=== PATIENT | female | born 1990 | race Caucasian/White ===

== ENCOUNTER → 2021-01-10 10:14 | Outpatient (CLI) | payer BC, SELFPAY ==
--- NOTE | ~2021-01-10 | US_ITS ---
US abdomen limited INDICATION: Abnormal liver enzymes. PROCEDURE: Realtime right upper abdominal ultrasound. COMPARISON: No prior studies for comparison. FINDINGS: The pancreas is normal without focal mass or pancreatic ductal dilation. Liver echotexture is normal without focal mass or intrahepatic biliary dilatation. There is normal directional flow i n the portal vein. The gallbladder is normal without stones, gallbladder wall thickening or pericholecystic fluid. Comm on bile duct measures 3 mm. No sonographic Ramírez's sign. IMPRESSION: 1: Normal limited abdominal ultrasound. Reviewed, dictated and finalized at location B.
== END ==
PROVIDERS: PCP Family Medicine; Visit Provider Nurse Practitioner Family
DX: R74.8 Abnormal levels of other serum enzymes (principal)
CPT/HCPCS: 76705

== ENCOUNTER 2022-11-04 15:12 | Outpatient (CLI) | payer BC, SELFPAY ==
--- NOTE | ~2022-11-04 | US_ITS ---
Pelvic ultrasound. Clinical History: Noninflammatory disorder of ovary or fallopian tube Technique: Realtime transabdominal and transvaginal scanning of the pelvis was performed. Color flow Doppler and Doppler spectral analysis were performed. Findings: The uterus is anteverted, and measures 11.6 x 4.8 x 7.0 cm. The endometrial stripe has a t hickness of 6 mm. No focal mass is identified. The right ovary measures 7.7 x 5.7 x 6.8 cm, and is nearly completely occupied by a large simple cyst . The left ovary measures 3.9 x 2.2 x 2.2 cm. No significant left ovarian or adnexal mass is seen. Vascular flow present in both ovaries on Doppler spectral analysis. There is no evidence of free fluid in the cul de sac. Impression: 7.5 cm simple right ovarian cyst. Reviewed, dictated and finalized at [facility]. [employer] Impression: 7.5 cm simple right ovarian cyst.
== END 2022-11-04 15:13 | disposition home or self-care (01) ==
LOC: ANHIMG 15:15
PROVIDERS: PCP Family Medicine; Visit Provider Obstetrics & Gynecology
DX: N83.8 Other noninflammatory disorders of ovary, fallopian tube and broad ligament (principal); N83.201 Unspecified ovarian cyst, right side
CPT/HCPCS: 76830; 76856

== ENCOUNTER 2022-12-18 15:16 | Outpatient (CLI) | payer BC, SELFPAY ==
--- NOTE | ~2022-12-18 | US_ITS ---
Pelvic ultrasound. Clinical History: Ovarian cyst COMPARISON: 11/04/2022 Technique: Realtime transabdominal and transvaginal scanning of the pelvis was performed. Color flow Doppler and Doppler spectral analysis were performed. Findings: The uterus is anteverted. The endometrial stripe has a thickness of 8 mm. No focal myometr ial mass is identified. Small cervical nabothian cysts are present. The right ovary measures 2.2 x 3.3 x 2.7 cm. No significant right ovarian or adnexal mass is seen. The left ovary measures 4.0 x 3.8 x 2.5 cm. No significant left ovarian or adnexal mass is seen. There is no evidence of free fluid in the cul de sac. Impression: Unremarkable pelvic ultrasound. Small follicular ovarian cysts are of no clinical significance. Reviewed, dictated and finalized at [facility]. Impression: Unremarkable pelvic ultrasound. Small follicular ovarian cysts are of no clinic al significance.
== END 2022-12-18 15:17 | disposition home or self-care (01) ==
PROVIDERS: PCP Family Medicine; Visit Provider Registered Nurse
DX: N83.201 Unspecified ovarian cyst, right side (principal); N83.202 Unspecified ovarian cyst, left side
CPT/HCPCS: 76830; 76856

== ENCOUNTER 2023-07-05 10:21 | Outpatient (CLI) | payer BC, SELFPAY ==
[2023-07-05 10:39] LABS: Basophils Percent Auto 0.7 % (0.2-1.2); Eosinophils Absolute Auto 0.1 K/mm3 (0-0.3); Eosinophils Percent Auto 2.4 % (0-4.4); Hemoglobin 12.9 g/dL (12.0-15.0); Immature Granulocyte Absolute 0.01 K/mm3 (0.00-0.031); Immature Granulocyte Percent A 0.2 % (0-0.5); Lymphocytes Absolute Auto 1.84 K/mm3 (0.9-3.2); Lymphocytes Percent Auto 40.4 % (18.3-44.2); Mean Corpuscular HGB Conc 33.1 g/dl (32-36); Mean Corpuscular Hemoglobin 33.5 pg (26-34); Mean Corpuscular Volume 101.3 fl (80-100); Mean Platelet Volume 10.5 fl (7.4-10.4); Monocytes Absolute Auto 0.2 K/mm3 (0.1-0.6); Monocytes Percent Auto 5.3 % (2.6-8.5); Neutrophils Absolute Auto 2.3 K/mm3 (1.3-6.7); Platelet Count Result 173 k/mm3 (150-375); Red Blood Count 3.85 M/mm3 (4.2-5.4); Red Cell Distribution Width 12.2 % (11.5-14.5); White Blood Count 4.6 K/mm3 (4.5-10.0)
[2023-07-05 12:45] LABS: Free T4 Free Thyroxine 0.68 ng/mL (0.78-2.19)
== END 2023-07-05 10:22 | disposition home or self-care (01) ==
LOC: ANHLAB 10:23
PROVIDERS: PCP Family Medicine; Visit Provider Internal Medicine Hematology & Oncology
DX: E03.9 Hypothyroidism, unspecified (principal)
CPT/HCPCS: 36415; 84439; 84443; 85025

== ENCOUNTER 2023-08-24 10:28 | Outpatient (CLI) | payer BC, SELFPAY ==
[2023-08-24 12:00] LABS: Appearance Urine Cloudy (Clear); Bacteria Urine Rare /hpf; Bilirubin Urine Negative (Negative); Blood Urine 2+ (Negative); Color Urine Yellow (Yellow); Glucose Urine UA Negative (Negative); Ketones Urine Negative (Negative); Leukocyte Esterase Ur Negative LEU/UL (NEGATIVE); Nitrate Urine Negative (Negative); Non Pathogenic Casts 0-2; Protein Urine Negative (Negative); RBC Urine 0-2 /hpf (0-2); Squamous Epithelial Cell Urine Few /hpf (Few); Urobilinogen Urine 0.2 mg/dL (<2.0); WBC Urine 0-5 /hpf (0-3)
[2023-08-24 12:05] LABS: Add Urine Microscopic? YES
== END 2023-08-24 10:29 | disposition home or self-care (01) ==
PROVIDERS: PCP Family Medicine; Visit Provider Internal Medicine Hematology & Oncology
DX: R30.0 Dysuria (principal)
CPT/HCPCS: 81001; 87086; 87088

== ENCOUNTER 2023-09-22 10:34 | Outpatient (CLI) | payer BC, SELFPAY ==
[2023-09-22 12:56] LABS: T4 Thyroxine 7.47 ug/dL (5.53-11.0)
== END 2023-09-22 10:35 | disposition home or self-care (01) ==
LOC: ANHLAB 10:36
PROVIDERS: Nurse Practitioner Family; PCP Family Medicine; Visit Provider Internal Medicine Hematology & Oncology
DX: E03.9 Hypothyroidism, unspecified (principal)
CPT/HCPCS: 36415; 84436; 84443

== ENCOUNTER 2023-11-12 11:58 | Outpatient (CLI) | payer BC, SELFPAY ==
--- NOTE | ~2023-11-12 | US_ITS ---
EXAMINATION: US OB <=14 wk fetus w TV DATE: 11/12/2023 12:38 INDICATION: Right lower quadrant abdominal pain. . TECHNIQUE: Real-time transabdominal and transvaginal pelvic ultrasound was performed. COMPARISON: None. FINDINGS: TRANSABDOMINAL ULTRASOUND: The uterus measures 10.4 x 5.5 x 7.2 cm. TRANSVAGINAL ULTRASOUND: The endometrial complex measures 2.8 cm in thickness. There is no visible in trauterine gestational sac. The right ovary measures 2.6 x 1.6 x 2.2 cm. The left ovary measures 3.7 x 2.8 x 3.9 cm. There is no free fluid in the pelvis. IMPRESSION: 1. No visible intrauterine gestational sac, which may be seen with early . Spontaneous abor tion, ectopic , and gestational trophoblastic disease cannot be excluded. Serial beta hCGs a re recommended. Reviewed, dictated and finalized at location A. ALARM DISPATCHER IMPRESSION: 1. No visible intrauterine gestational sac, which may be seen with early pregn jori. Spontaneous , ectopic , and gestational trophoblastic di sease cannot be excluded. Serial beta hCGs are recommended.
== END 2023-11-12 11:59 | disposition home or self-care (01) ==
LOC: ANHIMG 11:58
PROVIDERS: PCP Family Medicine; Visit Provider Nurse Practitioner Family
DX: O36.80X0 Pregnancy with inconclusive fetal viability, not applicable or unspecified (principal); Z3A.00 Weeks of gestation of pregnancy not specified
CPT/HCPCS: 36415; 76801; 76817; 84702

== ENCOUNTER 2023-11-15 08:53 | Outpatient (CLI) | payer BC, SELFPAY | END 2023-11-15 08:54 | disposition home or self-care (01) | PROVIDERS: PCP Family Medicine; Visit Provider Nurse Practitioner Family | DX: O36.80X0 Pregnancy with inconclusive fetal viability, not applicable or unspecified (principal); Z3A.00 Weeks of gestation of pregnancy not specified | CPT/HCPCS: 36415; 84702 ==

== ENCOUNTER 2023-11-15 11:22 | Outpatient (CLI) | payer BC, SELFPAY ==
--- NOTE | ~2023-11-15 | US_ITS ---
EXAMINATION: US OB <=14 wk fetus w TV DATE: 11/15/2023 12:26 INDICATION: Inconclusive viability during first trimester TECHNIQUE: Real-time pelvic transabdominal and transvaginal ultrasound was performed. COMPARISON: 11/12/2023 FINDINGS: The uterus measures 9.8 x 6.8 x 7.6 cm. There is an intrauterine gestational sac. A yolk sa c is identified. The pole is not yet visualized. The mean sac diameter measures 10 mm, which co rrelates with an estimated gestational age of 5 weeks and 5 day(s) (+/-) 4 day(s). The right ovary measures 1.4 x 1.2 x 1.3 cm. The left ovary measures 4.0 x 3.1 x 3.0 cm and contains a 2 cm cyst. There is normal vascular flow in the ovaries. There is no free fluid in the pelvis. IMPRESSION: 1. Intrauterine gestational sac with an estimated gestational age of 5 weeks and 5 day(s) (+/-) 4 day (s) and an estimated delivery date of 07/12/2024 based on mean sac diameter. pole not yet visua lized, likely due to early gestation.. Reviewed, dictated and finalized at location B. ER PIE FILLING IMPRESSION: 1. Intrauterine gestational sac with an estimated gestational age of 5 weeks an d 5 day(s) (+/-) 4 day(s) and an estimated delivery date of 07/12/2024 based on mean sac diameter. pole not yet visualized, likely due to early gestatio n..
== END 2023-11-15 11:23 | disposition home or self-care (01) ==
LOC: ANHIMG 11:22
PROVIDERS: PCP Family Medicine; Visit Provider Obstetrics & Gynecology
DX: O36.80X0 Pregnancy with inconclusive fetal viability, not applicable or unspecified (principal); Z3A.01 Less than 8 weeks gestation of pregnancy
CPT/HCPCS: 36415; 76801; 76817; 84702

== ENCOUNTER 2023-11-23 12:09 | Outpatient (CLI) | payer BC, SELFPAY ==
--- NOTE | ~2023-11-23 | US_ITS ---
EXAMINATION: US OB <=14 wk fetus w TV DATE: 11/23/2023 12:40 INDICATION: Hemorrhage in early , unspecified. TECHNIQUE: Real-time transabdominal and transvaginal pelvic ultrasound was performed. COMPARISON: Ultrasound 11/15/2023 FINDINGS: TRANSABDOMINAL ULTRASOUND: The uterus measures 10.4 x 6.0 x 7.6 cm. TRANSVAGINAL ULTRASOUND: There is an intrauterine gestational sac. A yolk sac is identified. The fet al crown rump length measures 7 mm, which correlates with an estimated gestational age of 6 weeks and 4 day(s) (+/-) 4 day(s). heart motion is identified measuring 122 beats per minute (bpm) by M- mode Doppler. The right ovary is not visualized. The left ovary measures 3.7 x 2.7 x 3.1 cm. There is no free fluid in the pelvis. IMPRESSION: 1. Single living intrauterine gestation with estimated date of 07/14/2024. Reviewed, dictated and finalized at location A.
== END 2023-11-23 12:10 ==
PROVIDERS: PCP Family Medicine; Visit Provider Obstetrics & Gynecology
DX: O36.80X0 Pregnancy with inconclusive fetal viability, not applicable or unspecified (principal); O20.9 Hemorrhage in early pregnancy, unspecified
CPT/HCPCS: 76801; 76817

== ENCOUNTER 2023-12-10 13:09 | Outpatient (CLI) | payer BC, SELFPAY ==
--- NOTE | 2023-12-10 13:16 | ECG_ITS ---
Measurements Intervals [place] Rate: 80 P: 56 MO: 144 QRS: 53 QRSD: 82 T: 25 QT: 363 QTc: 421 Interpretive Statements SINUS RHYTHM NONSPECIFIC T-WAVE ABNORMALITY- INFERIOR LEADS BASELINE ARTIFACT- I, II, III, AVR, AVL, AVF, V3-V6 BORDERLINE ECG NO PREVIOUS ECG AVAILABLE FOR COMPARISON Electronically Signed On 12-10-2023 13:28:20 CDT by Zane Gray D.O.
== END 2023-12-10 13:10 | disposition home or self-care (01) ==
PROVIDERS: PCP Family Medicine; Visit Provider Obstetrics & Gynecology
DX: O10.919 Unspecified pre-existing hypertension complicating pregnancy, unspecified trimester (principal); Z3A.00 Weeks of gestation of pregnancy not specified; R94.31 Abnormal electrocardiogram [ECG] [EKG]
CPT/HCPCS: 93005

== ENCOUNTER 2023-12-21 14:00 | Outpatient (CLI) | payer BC, SELFPAY ==
[2023-12-21 16:39] LABS: Appearance Urine Clear (Clear); Bacteria Urine None Seen /hpf; Bilirubin Urine Negative (Negative); Blood Urine Negative (Negative); Color Urine Yellow (Yellow); Glucose Urine UA Negative (Negative); Ketones Urine Trace mg/dL (Negative); Leukocyte Esterase Ur Trace LEU/UL (Negative); Nitrate Urine Negative (Negative); Non Pathogenic Casts 0-2; Protein Urine Negative (Negative); RBC Urine 0-2 /hpf (0-2); Squamous Epithelial Cell Urine Few /hpf (Few); Urobilinogen Urine 0.2 mg/dL (<2.0)
[2023-12-21 17:06] LABS: Specific Grav Ur 1.031 (1.001-1.035)
[2023-12-21 17:27] LABS: Add Urine Microscopic? YES
== END 2023-12-21 14:01 | disposition home or self-care (01) ==
LOC: ANHLAB 14:03
PROVIDERS: Obstetrics & Gynecology; PCP Family Medicine; Visit Provider Internal Medicine Hematology & Oncology
DX: R39.9 Unspecified symptoms and signs involving the genitourinary system (principal)
CPT/HCPCS: 81001; 87086

== ENCOUNTER 2024-04-09 18:55 | Observation (INO) | payer BC, SELFPAY ==
[2024-04-09 19:18] VITALS: BP 124/71; PULSE 78
[2024-04-09 19:31] VITALS: BP 122/70; PULSE 74
[2024-04-09 19:46] VITALS: BP 119/69; PULSE 69
[2024-04-09 20:01] VITALS: BP 126/68; PULSE 72
[2024-04-09 20:16] VITALS: BP 117/65; PULSE 67
[2024-04-09 20:22] VITALS: BMI 35.6
--- NOTE | 2024-04-09 20:22 | OBADM ---
This patient, Tatianna Faye, admitted to the OB room OB Post 117 for observation. Patient/family oriented to hospital policies and general routines including ID bracelet, bed and alarms, visiting hours, pain management, procedures, bathroom and other care routines, personal items, smoking policy, room service/diet, and visiting hours. Patient/Family are encouraged to report perceived risks to care and to ask questions if they do not understand what they are told or what they should do.
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
== END 2024-04-09 20:35 ==
PROVIDERS: Admitting Provider Student in an Organized Health Care Education/Training Program; PCP Family Medicine; Visit Provider Student in an Organized Health Care Education/Training Program
DX: Z04.1 Encounter for examination and observation following transport accident (principal); O26.892 Other specified pregnancy related conditions, second trimester; Z3A.27 27 weeks gestation of pregnancy
CPT/HCPCS: G0378; G0379

== ENCOUNTER 2024-04-27 08:47 | Observation (INO) | payer BC, SELFPAY ==
--- NOTE | ~2024-04-27 | US_ITS ---
EXAMINATION: US OB limited DATE: 04/27/2024 10:22 INDICATION: Vaginal bleeding. with estimated gestational age of 29 weeks and 5 days. TECHNIQUE: Real-time ultrasound of the pelvis was performed. COMPARISON: Ultrasound 11/23/2023 FINDINGS: There is a single fetus in vertex presentation. The placenta is posterior. The cervical length is 3. 6 cm on transabdominal images, which is normal. heart rate is 162 beats per minute (bpm). The a mniotic fluid volume is subjectively normal. IMPRESSION: 1. Single living fetus in vertex presentation. Reviewed, dictated and finalized at location A.
[2024-04-27 09:00] VITALS: BMI 35.6
[2024-04-27 09:10] VITALS: BP 130/72; PULSE 87
[2024-04-27 09:21] LABS: Add Urine Microscopic? YES; Appearance Urine Cloudy (Clear); Bacteria Urine 1+ /hpf; Bilirubin Urine Negative (Negative); Blood Urine 3+ (Negative); Color Urine Yellow (Yellow); Glucose Urine UA Negative (Negative); Ketones Urine Negative (Negative); Leukocyte Esterase Ur 1+ LEU/UL (Negative); Nitrate Urine Negative (Negative); Non Pathogenic Casts 0-2; Protein Urine Trace mg/dL (Negative); RBC Urine 0-2 /hpf (0-2); Specific Grav Ur 1.016 (1.001-1.035); Squamous Epithelial Cell Urine Few /hpf (Few); WBC Urine 21-50 /hpf (0-3)
[2024-04-27 09:31] VITALS: BP 114/57; PULSE 81
--- NOTE | 2024-04-27 11:24 | OBADM ---
This patient, Tatianna Faye, admitted to the OB room OB Post 115 for observation. Patient/family oriented to hospital policies and general routines including ID bracelet, bed and alarms, visiting hours, pain management, procedures, bathroom and other care routines, personal items, smoking policy, room service/diet, and visiting hours. Patient/Family are encouraged to report perceived risks to care and to ask questions if they do not understand what they are told or what they should do.
--- NOTE | 2024-05-12 10:14 | P.PNOB_ITS ---
OB - Triage/Final Diagnosis Visit Information Comments/Additional reasons for admission: I have assessed the risk for this patient, Tatianna Faye, and determined that she would benefit from observation care. Evaluation Laboratory results: Laboratory Tests 04/27/24 09:09 Urine Color Yellow Urine Appearance Cloudy H Urine pH 6.0 Ur Specific [place] 1.016 Urine Protein Trace Urine Glucose (UA) Negative Urine Ketones Negative Ur Blood (Man) 3+ H Urine Nitrate Negative Urine Bilirubin Negative Urine Urobilinogen 1.0 Leukocyte Esterase Rfl 1+ H Urine RBC 0-2 Urine WBC 21-50 H Ur Squamous Epith Cells Few Urine Bacteria 1+ H Urine Casts 0-2 Final Diagnosis (1) Spotting affecting : Code(s): O26.859 - Spotting complicating , unspecified trimester Status: Acute
== END 2024-04-27 10:45 | disposition home or self-care (01) ==
PROVIDERS: Admitting Provider Obstetrics & Gynecology; PCP Family Medicine; Visit Provider Obstetrics & Gynecology
DX: O46.93 Antepartum hemorrhage, unspecified, third trimester (principal); Z3A.29 29 weeks gestation of pregnancy
CPT/HCPCS: 76815; 81001; 87086; G0378; G0379

== ENCOUNTER 2024-06-08 15:35 | Outpatient (RCR) | payer BC, SELFPAY ==
[2024-06-08 16:24] VITALS: BP 137/83; PULSE 76
== END 2024-07-17 09:44 | disposition home or self-care (01) ==
LOC: ANHOBOP 15:35
PROVIDERS: PCP Family Medicine; Visit Provider Obstetrics & Gynecology
DX: O36.8310 Maternal care for abnormalities of the fetal heart rate or rhythm, first trimester, not applicable or unspecified (principal)
CPT/HCPCS: 59025

== ENCOUNTER 2024-06-22 09:15 | Outpatient (CLI) | payer BC, SELFPAY ==
--- NOTE | ~2024-06-22 | US_ITS ---
LIMITED OBSTETRIC ULTRASOUND Ordering provider: Sundar Rodriguez MD History: . JULIAN . Comparison: None. FINDINGS: MATERNAL CERVIX: Not visualized. 3.9 cm which is normal (normal is equal to or greater than 3.0 cm). PRESENTATION: Vertex PLACENTAL LOCATION: Posterior. No previa. HEART RATE: 129 bpm (normal is between 110 to 160 bpm). AMNIOTIC FLUID INDEX: 12.1 cm. 5th percentile is 7.5 cm.75th percentile areas 24.4 cm. Largest verti sofiya pocket is 3.9 cm. normal (JULIAN between 5-25 cm in from 20-35 weeks gestation is considered normal) . OTHER: Maternal ovaries not visualized. IMPRESSION: Single live fetus of Vertex presentation. Reviewed, dictated and finalized at location A.
[2024-06-22 09:31] VITALS: BP 125/68; PULSE 94
[2024-06-22 09:46] VITALS: BP 117/75; PULSE 79
[2024-06-22 10:00] LABS: Basophils Percent Auto 0.3 % (0.2-1.2); Eosinophils Percent Auto 0.5 % (0-4.4); Hematocrit 31.1 % (37.0-47.0); Hemoglobin 10.8 g/dL (12.0-15.0); Immature Granulocyte Absolute 0.03 K/mm3 (0.00-0.031); Immature Granulocyte Percent A 0.8 % (0-0.5); Lymphocytes Absolute Auto 0.83 K/mm3 (0.9-3.2); Lymphocytes Percent Auto 21.3 % (18.3-44.2); Mean Corpuscular HGB Conc 34.7 g/dl (32-36); Mean Corpuscular Hemoglobin 30.9 pg (26-34); Mean Corpuscular Volume 89.1 fl (80-100); Mean Platelet Volume 11.8 fl (7.4-10.4); Monocytes Absolute Auto 0.3 K/mm3 (0.1-0.6); Monocytes Percent Auto 7.7 % (2.6-8.5); Neutrophils Absolute Auto 2.7 K/mm3 (1.3-6.7); Neutrophils Percent Auto 69.4 % (45.5-73.1); Platelet Count Result 154 k/mm3 (150-375); Red Blood Count 3.49 M/mm3 (4.2-5.4); Red Cell Distribution Width 13.2 % (11.5-14.5); White Blood Count 3.9 K/mm3 (4.5-10.0)
[2024-06-22 10:12] LABS: Alanine Aminotransferase 20 U/L (6-35); Albumin Level 3.3 g/dL (3.5-5.1); Alkaline Phosphatase 107 U/L (38-126); Anion Gap 9 mmol/L (4-12); Aspartate Amino Transferase 28 U/L (14-36); Bilirubin,Total 0.3 mg/dL (0.2-1.3); Blood Urea Nitrogen 5 mg/dL (7-17); Calcium 8.5 mg/dL (8.4-10.2); Carbon Dioxide 18 mmol/L (22-30); Chloride 106 mmol/L (98-107); Estimated Glomerular Filt Rate > 60; Glucose 101 mg/dL (65-110); Potassium 3.2 mmol/L (3.4-5.0); Sodium 133 mmol/L (137-145); Uric Acid 5.3 mg/dL (2.5-7.5)
[2024-06-22 10:21] LABS: Add Urine Microscopic? YES; Appearance Urine Cloudy (Clear); Bacteria Urine 1+ /hpf; Bilirubin Urine Negative (Negative); Blood Urine Negative (Negative); Color Urine Yellow (Yellow); Glucose Urine UA Negative (Negative); Ketones Urine Negative (Negative); Leukocyte Esterase Ur 2+ LEU/UL (Negative); Need Manual Microscopic Reviewed; Nitrate Urine Negative (Negative); Protein Urine Trace mg/dL (Negative); RBC Urine 0-2 /hpf (0-2); Specific Grav Ur 1.013 (1.001-1.035); Squamous Epithelial Cell Urine Moderate /hpf (Few); Urobilinogen Urine 0.2 mg/dL (<2.0); WBC Urine 51-100 /hpf (0-3); pH Urine 6.5 (5.0-9.0)
[2024-06-22 10:30] LABS: Creatinine Urine 108.5 mg/dL; Total Protein Urine Random 25 mg/dL; Ur Ttl Prot Creatinine Ratio 0.23 mg/mg (0-0.20)
[2024-06-22 11:22] VITALS: BP 125/68; PULSE 91
--- NOTE | 2024-06-22 15:17 | PC.NURSE ---
see OBIX for vital signs
== END 2024-06-22 11:25 ==
LOC: ANHOBOP 09:18 → ANHLDR 09:19
PROVIDERS: PCP Family Medicine; Visit Provider Obstetrics & Gynecology
DX: O13.9 Gestational [pregnancy-induced] hypertension without significant proteinuria, unspecified trimester (principal); Z3A.00 Weeks of gestation of pregnancy not specified
CPT/HCPCS: 36415; 59025; 76815; 80053; 81001; 82570; 84156; 84550; 85025; 87086; 99199

== ENCOUNTER 2024-06-26 09:07 | Outpatient (CLI) | payer BC, SELFPAY ==
--- NOTE | ~2024-06-26 | US_ITS ---
LIMITED OBSTETRIC ULTRASOUND Ordering provider: Sundar Rodriguez MD History: . Leaking, elevated BP - JULIAN . Comparison: None. FINDINGS: MATERNAL CERVIX: Measures 2.9 cm. PRESENTATION: Vertex Longitudinal lie. PLACENTAL LOCATION: Posterior No previa. Distance from the cervix is 2.8 cm. HEART RATE: 145 bpm (normal is between 110 to 160 bpm). AMNIOTIC FLUID INDEX: 12.3 cm. 5th percentile is 7.3 cm. 95th percentile is 23.9 cm. Largest vertica l pocket is 3.8 cm. normal (JULIAN between 5-25 cm in from 20-35 weeks gestation is considered normal). OTHER: Maternal ovaries not visualized. IMPRESSION: Normal amniotic fluid. Single live fetus CEPHALIC presentation. Reviewed, dictated and finalized at location A.
--- NOTE | 2024-06-26 09:51 | PC.NURSE ---
Dr Rodriguez informed of negative ROM plus, reactive tracing and BP's. Orders received.
[2024-06-26 10:01] VITALS: BP 124/72; PULSE 86
[2024-06-26 10:05] VITALS: BP 132/81; PULSE 61
[2024-06-26 10:18] LABS: Basophils Percent Auto 0.1 % (0.2-1.2); Eosinophils Percent Auto 0.3 % (0-4.4); Hematocrit 31.5 % (37.0-47.0); Hemoglobin 10.9 g/dL (12.0-15.0); Immature Granulocyte Absolute 0.02 K/mm3 (0.00-0.031); Immature Granulocyte Percent A 0.3 % (0-0.5); Lymphocytes Absolute Auto 1.78 K/mm3 (0.9-3.2); Lymphocytes Percent Auto 24.8 % (18.3-44.2); Mean Corpuscular HGB Conc 34.6 g/dl (32-36); Mean Corpuscular Hemoglobin 31.1 pg (26-34); Mean Corpuscular Volume 89.7 fl (80-100); Mean Platelet Volume 12.3 fl (7.4-10.4); Monocytes Absolute Auto 0.3 K/mm3 (0.1-0.6); Monocytes Percent Auto 3.8 % (2.6-8.5); Neutrophils Absolute Auto 5.1 K/mm3 (1.3-6.7); Neutrophils Percent Auto 70.7 % (45.5-73.1); Platelet Count Result 145 k/mm3 (150-375); Red Blood Count 3.51 M/mm3 (4.2-5.4); White Blood Count 7.2 K/mm3 (4.5-10.0)
[2024-06-26 10:29] LABS: Total Protein Urine Random 22 mg/dL
[2024-06-26 10:33] LABS: Add Urine Microscopic? YES; Appearance Urine Cloudy (Clear); Bacteria Urine 2+ /hpf; Bilirubin Urine 2+ (Negative); Blood Urine Negative (Negative); Color Urine Dark Yellow (Yellow); Glucose Urine UA Negative (Negative); Ketones Urine Trace mg/dL (Negative); Leukocyte Esterase Ur 1+ LEU/UL (Negative); Mucus Urine Present /lpf; Nitrate Urine Negative (Negative); Protein Urine 1+ mg/dL (Negative); RBC Urine 0-2 /hpf (0-2); Specific Grav Ur 1.032 (1.001-1.035); Squamous Epithelial Cell Urine Few /hpf (Few); WBC Urine 21-50 /hpf (0-3)
[2024-06-26 10:36] LABS: Alanine Aminotransferase 14 U/L (6-35); Albumin Level 3.2 g/dL (3.5-5.1); Alkaline Phosphatase 115 U/L (38-126); Anion Gap 5 mmol/L (4-12); Aspartate Amino Transferase 18 U/L (14-36); Bilirubin,Total 0.5 mg/dL (0.2-1.3); Blood Urea Nitrogen 5 mg/dL (7-17); Calcium 8.5 mg/dL (8.4-10.2); Carbon Dioxide 23 mmol/L (22-30); Chloride 106 mmol/L (98-107); Estimated Glomerular Filt Rate > 60; Glucose 139 mg/dL (65-110); Potassium 3.2 mmol/L (3.4-5.0); Sodium 134 mmol/L (137-145)
[2024-06-26 10:48] LABS: Creatinine Urine 418.3 mg/dL; Ur Ttl Prot Creatinine Ratio 0.05 mg/mg (0-0.20)
--- NOTE | 2024-06-26 11:39 | PC.NURSE ---
Dr Rodriguez informed of labor results and JULIAN, also informed that US did not perform a BPP, OK to dc home without BPP, Patient is being induced tomorrow at 0600. Precautions discussed.
[2024-06-26 12:21] LABS: OBXCEM ROM Plus Negative (Negative)
--- NOTE | 2024-06-26 12:21 | PC.NURSE ---
Dr Rodriguez informed of labor results and JULIAN, also informed that US did not perform a BPP, OK to dc home without BPP, jon
== END 2024-06-26 11:45 | disposition home or self-care (01) ==
LOC: ANHOBOP 09:58 → ANHLDR 09:58
PROVIDERS: PCP Family Medicine; Visit Provider Obstetrics & Gynecology
DX: O42.90 Premature rupture of membranes, unspecified as to length of time between rupture and onset of labor, unspecified weeks of gestation (principal); O16.9 Unspecified maternal hypertension, unspecified trimester; Z3A.00 Weeks of gestation of pregnancy not specified
CPT/HCPCS: 36415; 59025; 76815; 76819; 80053; 81001; 82570; 84112; 84156; 84550; 85025; 87086; 99199

== ENCOUNTER 2024-06-27 06:19 | Inpatient (IN) | payer BC, SELFPAY ==
[2024-06-27] VITALS (83 sets, daily range): BP systolic 127–171; BP diastolic 30–138; PULSE 64–115; RESP 16–18; TEMP 36.3–37.2; O2SAT 97–100; BMI 36.4
[2024-06-27 07:08] LABS: Basophils Percent Auto 0.3 % (0.2-1.2); Eosinophils Percent Auto 0.7 % (0-4.4); Hematocrit 31.7 % (37.0-47.0); Immature Granulocyte Absolute 0.02 K/mm3 (0.00-0.031); Immature Granulocyte Percent A 0.3 % (0-0.5); Lymphocytes Absolute Auto 2.01 K/mm3 (0.9-3.2); Lymphocytes Percent Auto 33.2 % (18.3-44.2); Mean Corpuscular HGB Conc 34.7 g/dl (32-36); Mean Corpuscular Volume 89.3 fl (80-100); Mean Platelet Volume 12.6 fl (7.4-10.4); Monocytes Absolute Auto 0.3 K/mm3 (0.1-0.6); Monocytes Percent Auto 4.6 % (2.6-8.5); Neutrophils Absolute Auto 3.7 K/mm3 (1.3-6.7); Neutrophils Percent Auto 60.9 % (45.5-73.1); Platelet Count Result 153 k/mm3 (150-375); Red Blood Count 3.55 M/mm3 (4.2-5.4); Red Cell Distribution Width 12.9 % (11.5-14.5); White Blood Count 6.1 K/mm3 (4.5-10.0)
[2024-06-27] MEDS: AMPICILLIN 2 GM/NS 100 ML 2 GM/100 ML BAG IVPB (07:15)
[2024-06-27] MEDS: LACTATED RINGERS 1,000 ML 125 ML IV CONT ×2 (07:15→08:45)
[2024-06-27] MEDS: OXYTOCIN 30 UNITS/NS 500 ML 30 UNITS/500 ML BAG IV CONT (07:15)
--- NOTE | 2024-06-27 07:27 | LDADM ---
This patient, Tatianna Faye, was admitted to Labor/Delivery/Recovery 102 on 06/27/24 at 06:19. Plans for labor, pain management and were discussed with patient. Patient/family oriented to hospital policies and general routines including ID bracelet, bed and alarms, visiting hours, pain management, procedures, bathroom and other care routines, personal items, smoking policy, room service/diet and guest tray routines, infant security routines, and visiting hours. Patient/Family are encouraged to report perceived risks to care and to ask questions if they do not understand what they are told or what they should do. See OBIX for further documentation.
[2024-06-27 08:00] LABS: HIV 1/2 Ab P24 Ag Result Negative (Negative)
[2024-06-27 08:09] LABS: Alanine Aminotransferase 14 U/L (6-35); Albumin Level 3.3 g/dL (3.5-5.1); Alkaline Phosphatase 101 U/L (38-126); Anion Gap 8 mmol/L (4-12); Aspartate Amino Transferase 23 U/L (14-36); Bilirubin,Total 0.4 mg/dL (0.2-1.3); Blood Urea Nitrogen 7 mg/dL (7-17); Calcium 8.9 mg/dL (8.4-10.2); Carbon Dioxide 19 mmol/L (22-30); Chloride 108 mmol/L (98-107); Estimated CRCL calculation 161 ml/min; Estimated Glomerular Filt Rate > 60; Glucose 150 mg/dL (65-110); Potassium 3.1 mmol/L (3.4-5.0); Sodium 135 mmol/L (137-145); Uric Acid 5.6 mg/dL (2.5-7.5)
--- NOTE | 2024-06-27 08:47 | PM.IMHP ---
H&P: HPI History of Present Illness Date/Time: 06/27/24 08:47 Chief Complaint: Medical induction of labor Narrative: She is a 33-year-old at 38 weeks with an EDC of 1026 by last menstrual period consistent with first-trimester ultrasound. She presents for induction of labor due to chronic hypertension. She is on labetalol blood pressures have been stable. She denies any headache scotomata or right upper quadrant pain. course also significant for diet-controlled gestational diabetes. course also significant for prior and has had two prior . Also GBS in urine. Review of Systems Review of Systems: All systems reviewed & are unremarkable except as noted in HPI and below Constitutional: Constitutional: Reports no additional constitutional complaints and Denies headache(s) Eyes: Eyes: Denies spots in vision ENT: Reports system reviewed and no additional complaints, except as documented and Denies headache(s) Cardiovascular: Cardiovascular: Denies chest pain and Denies dyspnea Respiratory: Respiratory: Denies dyspnea Gastrointestinal: Gastrointestinal: Reports no additional gastrointestinal complaints Genitourinary: Genitourinary: Reports amenorrhea Musculoskeletal: Musculoskeletal: Reports no additional musculoskeletal complaints Integumentary/Breasts: Skin/Breast: Denies breast mass and Denies rash Neurologic: Denies headache(s) Psychiatric: Psychiatric: Reports no additional psychiatric complaints PMFSH Past Medical History Medical History Adult BMI 39.0-39.9 kg/sq m Anxiety disorder, unspecified Benign skin mole BMI 38.0-38.9,adult Body mass index (BMI) of 40.1 to 44.9 in adult Body mass index [BMI] 26.0-26.9, adult (08/11/16) Body mass index [BMI] 30.0-30.9, adult (03/01/18) Body mass index [BMI] 31.0-31.9, adult (03/18/18) Body mass index [BMI] 32.0-32.9, adult (07/27/17) COVID Depression Dietary counseling and surveillance (05/17/19) Dysuria Elevated blood pressure reading Encounter for confirmation of test result with physical examination Encounter for gynecological examination (general) (routine) without abnormal findings Encounter for visit Encounter for supervision of normal in first trimester Encounter for supervision of normal in second trimester Encounter for supervision of normal in third trimester Encounter for surveillance of contraceptive pills Endometritis following delivery Family history of cancer in brother GBS bacteriuria Hypothyroid Microhematuria Morbid (severe) obesity due to excess calories Pleurisy induced hypertension, -induced hypertension in third trimester Screening for diabetes mellitus Screening for lipid disorders Size of fetus inconsistent with dates in third trimester URI, acute Urinary tract infection, site not specified (vaginal after ) x 2 Weight gain Surgical History Surgical History Previous section Family History Family History Father Hypertension Grandparent Family history of coronary artery disease Mother Hypertension Sibling No problems noted. Other Breast cancer Other Cerebrovascular accident Diabetes mellitus Family history of Hodgkin's lymphoma Family history of malignant neoplasm Family history of malignant neoplasm of male breast Social History Social History Smoking status: Former smoker Second hand tobacco smoke exposure: No Smoking end date: 09/13/13 Alcohol intake: current Substance use: never Substance use type: does not use Do You Feel Safe in your Home?: Yes Lack of Transportation: No Lack of Food: Never True Current Housing: I Have Housing
[2024-06-27 08:53] LABS: Rapid Plasma Reagin Non-Reactive (NonReactive)
--- NOTE | 2024-06-27 08:55 | PM.OBPNVD ---
OB - PN: Subj Subjective Date/time seen: 06/27/24 08:55 Interval history: fht 140 cat 1 cervix /-2 initially, attempted IUPC, would not advance, cervix /-2. Continue low dose pitocin. OB - PN: Obj Data Labs 06/27/24 06:59 06/27/24 06:58 Labs: Laboratory Results - last 24 hr 06/27/24 06/27/24 06:58 06:59 WBC 6.1 RBC 3.55 L Hgb 11.0 L Hct 31.7 L MCV 89.3 MCH 31.0 MCHC 34.7 RDW 12.9 Plt Count 153 MPV 12.6 H Immature Gran % (Auto) 0.3 Neut % (Auto) 60.9 Lymph % (Auto) 33.2 [place] % (Auto) 4.6 Eos % (Auto) 0.7 Baso % (Auto) 0.3 Lymph # (Auto) 2.01 [place] # (Auto) 0.3 Eos # (Auto) 0.0 Baso # (Auto) 0.0 Abs Immat Gran (auto) 0.02 Absolute Neuts (auto) 3.7 Absolute Nucleated RBC 0.000 Nucleated RBC % 0.0 Sodium 135 L Potassium 3.1 L Chloride 108 H Carbon Dioxide 19 L Anion Gap 8 BUN 7 Creatinine 0.50 L Estim Creat Clear Calc 161 Estimated GFR > 60 Glucose 150 H Uric Acid 5.6 Calcium 8.9 Total Bilirubin 0.4 AST 23 ALT 14 Alkaline Phosphatase 101 Total Protein 7.0 Albumin 3.3 L RPR Non-reactive HIV 1&2 Ab/P24 Ag 4thGn Negative Blood Type A Positive Antibody Screen Negative OB - PN A/P Time Spent With Patient Time: Total time spent is greater than 50% in coordination of care (as documented) at patient's floor/unit and/or counseling patient:
[2024-06-27] MEDS: AMPICILLIN 1 GM/NS 50 ML 1 GM/50 ML BAG IVPB (11:09)
[2024-06-27] MEDS: OXYTOCIN 30 UNITS/NS 500 ML 30 UNITS/500 ML BAG 125 UNITS IV CONT (12:41)
--- NOTE | 2024-06-27 12:48 | PM.OBPRVD ---
OB - Vaginal Delivery Note Procedure Delivery date: 06/27/24 Events: Chronic Hypertension, Gestational Diabetes (diet controlled) and Previous Delivery Induction method: Per Pitocin Protocol Delivery augmentation: Rupture of Membranes Delivery monitor: External FHT and Internal Uterine Route of delivery: Episiotomy description: None Laceration Description: Vaginal (introitus) Delivery repair: vicryl (3.0 vicryl figure of eight) Specimen: Yes ( Placenta and cord) Quantitative Blood Loss (ml): 200 Anesthesia type: Epidural Disposition: Floor Complications: No immediate complications Narrative: she was admitted for medical induction of labor. Her initial blood sugar on admission was elevated her blood, 150 sugar prior to delivery was in the 80s. After admission Pitocin was started. She had an epidural placed due to history of fast active labor. She had assisted rupture of membranes clear fluid was noted. Once she got into active labor she was complete within an hour. heart tones were noted in the 90s and she pushed and delivered a female . The nose and mouth were suctioned with the bulb. Tight nuchal cord which was surgically reduced. With gentle traction the shoulders and rest the infant was delivered. The infant was placed on maternal abdomen and then taken to the warmer. Cord blood and cord gases obtained. Pitocin started. Placenta delivered spontaneously and intact. There was a small laceration at the introitus which was approximated with a [id number] stitch of 3-0 Vicryl. Patient tolerated procedure well. [place] Baby Date of : 06/27/24 Time of : 12:08 Gestational Age by Date: 38 gender: Female Weight (pounds): 7 Weight (ounces): 4 presentation: vertex Placenta delivery description: Spontaneous Cord Vessel Description: 3 Vessels, Tight and Reduced (surgically) score one minute: 6 score five minutes: 8
[2024-06-27] MEDS: WITCH HAZEL 40 PADS 1 PAD TOPICAL (13:49)
[2024-06-27] MEDS: IBUPROFEN 600 MG TABLET PO (13:49)
[2024-06-27] MEDS: BENZOCAINE 20% AER SPR (*SP) 56 GM CAN 1 SPRAY TOPICAL (13:49)
[2024-06-27] MEDS: ACETAMINOPHEN 325 MG TABLET 650 MG PO (15:01)
--- NOTE | 2024-06-27 16:22 | OBPPTRN ---
Patient transferred to post room #283 via (wheelchair). Support person present. Oriented to unit, room, information board, rooming in, admission packet and security measures. Patient verbalizes understanding.
[2024-06-27] MEDS: DOCUSATE SODIUM 100 MG CAPSULE PO (16:28)
[2024-06-27] MEDS: HYDROcodone/acetaminophen (*CRX) 10-325 MG TABLET 1 TAB PO (16:28)
[2024-06-27] MEDS: busPIRone HCL 5 MG TABLET PO (16:28)
--- NOTE | 2024-06-27 17:56 | PC.NURSE ---
Addendum entered by Mariia Álvarez RN 06/27/24 18:04: 1500. Introductions were made, then consulted with patient to assess needs related to . Mom reported that babies first session after delivery went very well. Encouraged understanding of the benefits of skin to skin (demonstrating unwrapping infant and placing upright on her chest), stimulating with massage touch, changing positions to encourage wakefulness, how to watch for early feeding cues, responsive feeding, feeding on demand (aiming for 8-12 times in 24 hours, about every 2-3 hours), milk production, building/maintaining a milk supply, duration of feeding, signs of adequate intake/output and how to record on the feeding sheet. Reviewed positioning and ear, shoulder, hip alignment, supporting the breast to facilitate a deep latch, asymmetrical latch (off-center), leading with the chin with a big, open, wide gape and body close to mother. Mother voiced understanding of skin to skin, stimulating with massage touch, responsive feedings, hand expressed colostrum, talking to infant to encourage if it has been 2 -2.5 hours since the start of the last , to call if does not latch, or if there is discomfort with . Resources used for education were facilitated with the visual educational handouts, tool & mom and baby guide. Infant showing no feeding cues at present. Mom verbalized understanding to call for assistance with latch or with other questions. Reported to the Primary RN. Original Note: 1530. Consulted with patient to assess needs related to . Discussed with mother her successes, concerns and any questions she has. Mom reports she breastfed her first child until she was 15 months old. Mom reports that so far the has latched and fed with no issues. Encouraged understanding the benefits of skin to skin, responding to feeding cues, frequencies of feeding 8-12 times in 24 hours (approximately 2-3 hours), duration of feedings, milk production, intake/output feeding sheet and signs of adequate intake encouraging swallowing at the breast. Mother independently latched Infant latched optimally to the right breast in cross cradle position. Education given to the mother of how to visualize the suckling (with good rocking jaw motion) swallows (dropping of the lower jaw) and how to listen for drinking at the breast (the ka sound). The was able to maintain latch without discomfort to mother. Nipple care reviewed with optimal latch, good positioning and using clean hands when touching her breast. Mother voiced understanding of the education shared, to call for assistance if the infant does not latch or if there is discomfort with . Reported to the Primary RN.
[2024-06-27] MEDS: LABETALOL HCL 100 MG TABLET PO (21:53)
[2024-06-27] MEDS: SERTRALINE HCL 50 MG TABLET 100 MG PO (21:53)
[2024-06-27] MEDS: HYDROcodone/acetaminophen (*CRX) 5-325 MG TABLET 1 TAB PO (21:54)
[2024-06-28] VITALS (8 sets, daily range): BP systolic 118–150; BP diastolic 68–93; PULSE 68–75; RESP 16–18; TEMP 36.6–37; O2SAT 98–100
[2024-06-28] MEDS: IBUPROFEN 600 MG TABLET PO (03:51)
[2024-06-28] MEDS: HYDROcodone/acetaminophen (*CRX) 5-325 MG TABLET 1 TAB PO ×2 (03:51→22:19)
[2024-06-28] MEDS: MULTIVIT/MIN/PREN/FOL AC/IRON TABLET 1 TAB PO (08:51)
[2024-06-28] MEDS: LABETALOL HCL 100 MG TABLET PO ×2 (08:51→22:18)
[2024-06-28] MEDS: HYDROcodone/acetaminophen (*CRX) 10-325 MG TABLET 1 TAB PO ×2 (08:52→15:00)
[2024-06-28] MEDS: DOCUSATE SODIUM 100 MG CAPSULE PO ×2 (08:52→18:57)
[2024-06-28] MEDS: busPIRone HCL 5 MG TABLET PO ×2 (08:52→18:58)
[2024-06-28] MEDS: CLINDAMYCIN 900 MG/D5W 50 ML 900 MG/50 ML PIGGYBACK 50 MG IVPB ×2 (11:10→18:58)
[2024-06-28] MEDS: KETOROLAC 30 MG/ML VIAL (*BKC) IV PUSH ×2 (11:11→18:58)
--- NOTE | 2024-06-28 14:02 | PM.OBPNVD ---
OB - PN: Subj Subjective Date/time seen: 06/28/24 10:00 Interval history: She denies headache scotomata or RUQ pain, she has significant menstrual cramps, helped with 10mg Costilla. Lochia decreasing. Patient comments: tolerating diet OB - PN: Obj Data Labs 06/28/24 03:35 06/27/24 06:58 Labs: Laboratory Results - last 24 hr 06/28/24 03:35 Hgb 10.0 L Hct 29.0 L OB - PN A/P Assessment and Plan (1) (vaginal after ): Code(s): O34.219 - Maternal care for unspecified type scar from previous delivery Status: Acute Assessment and Plan: Will start on Clindamycin for possible subclinical endometritis. Intrapartum risk factors low for this. She did have endometritis with last delivery. Continue pain medication as needed. Routine care. (2) Chronic hypertension: Code(s): I10 - Essential (primary) hypertension Status: Acute Assessment and Plan: Labile blood pressures. No signs or symptoms of severe symptoms. Will continue to monitor if persist then will adjust antihypertensive medication. Plan day: 1 Plan: routine care Comments: Patient doing well. Time Spent With Patient Time: Total time spent is greater than 50% in coordination of care (as documented) at patient's floor/unit and/or counseling patient: Exam Psych: Affect: normal affect Other: Abd: fundus firm, tender to palpation Ext: nontender
--- NOTE | 2024-06-28 15:45 | PC.NURSE ---
Consulted with patient to assess needs related to . Nipple care reviewed with optimal latch, good positioning and using clean hands when touching her breast. Infant remains in level 2 nursery for blood sugar issues. Mother is infant in level 2 nursery independently. Mother denies pain in when is latched. Breast pump (mom justine) being used in addition to putting to breast. Instructions given on cleaning, care, usage, that there should be no pain, pumping schedule for milk production, collection, and storage of human milk. Patient was assessed for correct placement, flange size, to pump for comfort and nipple stretching/stimulation for adequate milk production every 3 hours (8 times in 24 hours) 1-2 times at night. Parents are encouraged to record the pumping schedule on the feeding sheet.?Mother voiced understanding of the education. Resources used to facilitate learning were used from the visual handouts. Mother voiced understanding of the education shared, to call for assistance if needed. Reported to the Primary RN.
[2024-06-28] MEDS: hydrOXYzine pamoate 25 MG CAPSULE PO (22:18)
[2024-06-28] MEDS: SERTRALINE HCL 50 MG TABLET 100 MG PO (22:19)
[2024-06-29] MEDS: CLINDAMYCIN 900 MG/D5W 50 ML 900 MG/50 ML PIGGYBACK 50 MG IVPB (02:58)
[2024-06-29] MEDS: HYDROcodone/acetaminophen (*CRX) 5-325 MG TABLET 1 TAB PO (04:43)
[2024-06-29 08:30] VITALS: BP 135/85; PULSE 72; RESP 18; TEMP 36.4; O2SAT 99
[2024-06-29 09:29] VITALS: PULSE 80
[2024-06-29] MEDS: LABETALOL HCL 100 MG TABLET 200 MG PO (09:29)
[2024-06-29] MEDS: busPIRone HCL 5 MG TABLET PO (09:30)
[2024-06-29] MEDS: MULTIVIT/MIN/PREN/FOL AC/IRON TABLET 1 TAB PO (09:30)
[2024-06-29] MEDS: TETANUS,DIPHTHERIA,AC PERTUSSIS ADULT (0.5 ML) BOOSTRIX IM (09:31)
[2024-06-29] MEDS: INFLUENZA TRIVALENT VACCINE 45 MCG/0.5 ML SYRINGE IM (09:31)
[2024-06-29] MEDS: HYDROcodone/acetaminophen (*CRX) 10-325 MG TABLET 1 TAB PO (09:37)
[2024-06-30 11:08] VITALS: BP 134/89; PULSE 68; RESP 16; TEMP 36.8; O2SAT 99
== END 2024-06-29 13:20 | disposition home or self-care (01) | DRG 805 ==
LOC: ANHLDR 06:23 → ANHOB2 15:40
PROVIDERS: Admitting Provider Obstetrics & Gynecology; PCP Family Medicine; Visit Provider Obstetrics & Gynecology
DX: O10.92 Unspecified pre-existing hypertension complicating childbirth (principal); O75.3 Other infection during labor; Z37.0 Single live birth; O71.4 Obstetric high vaginal laceration alone; Z3A.38 38 weeks gestation of pregnancy; O24.420 Gestational diabetes mellitus in childbirth, diet controlled; O34.211 Maternal care for low transverse scar from previous cesarean delivery; O69.1XX0 Labor and delivery complicated by cord around neck, with compression, not applicable or unspecified; N71.9 Inflammatory disease of uterus, unspecified; Z23 Encounter for immunization
CPT/HCPCS: 36415; 80053; 84550; 85014; 85018; 85025; 86592; 86703; 86850; 86900; 86901; 88307; 90471; 90656; 90715; A9270; G0008; G0432; J0290; J1885; J2590; J2795; J7120